=== PATIENT | male | born 1970 | race Two or more races ===

== ENCOUNTER 2021-04-30 19:14 | Emergency (ER) | payer MEDICAID ==
[~2021-04-30] VITALS: Ht 167.6 cm; Wt 87.0 kg
[2021-04-30] MEDS: IBUPROFEN 600MG TABLET PO ONE (21:45)
[2021-04-30] MEDS: LIDOCAINE 5% PATCH TOP SCH (21:52)
[2021-04-30 22:06] VITALS: BP 128/70
== END 2021-04-30 22:07 | disposition home or self-care (01) ==
LOC: ER 19:14
DX: M25.512 Pain in left shoulder (principal); M79.602 Pain in left arm; M25.522 Pain in left elbow
CPT/HCPCS: 73030; 73080; 73562; 99284